=== PATIENT | male | born 1950 | race Caucasian/White ===

== ENCOUNTER → 2016-10-12 | Outpatient (CLI) | payer OTHER | END | disposition home or self-care (01) | LOC: CFH 09:17 | PROVIDERS: ATTEND Orthopaedic Surgery Adult Reconstructive Orthopaedic Surgery | DX: M75.51 Bursitis of right shoulder (principal); M75.101 Unspecified rotator cuff tear or rupture of right shoulder, not specified as traumatic ==

== ENCOUNTER → 2016-11-03 | Outpatient (CLI) | payer OTHER ==
[~2016-11-03] MED LIST: ACET-1600 PO; CALC1CAP8 PO; CHOL500014 PO; OMEG1CAP6 PO; curcumin PO
== END | disposition home or self-care (01) ==
LOC: STAR 15:29
PROVIDERS: ATTEND Orthopaedic Surgery Adult Reconstructive Orthopaedic Surgery
DX: Z01.818 Encounter for other preprocedural examination (principal); M75.121 Complete rotator cuff tear or rupture of right shoulder, not specified as traumatic; M75.21 Bicipital tendinitis, right shoulder
CPT/HCPCS: 93005

== ENCOUNTER 2016-11-11 05:35 | Day surgery (SDC) | payer MEDICARE, OTHER ==
[~2016-11-11] VITALS: Ht 193 cm; Wt 114.0 kg
[2016-11-11 06:19] VITALS: BP 115/77
[2016-11-11] MEDS ORDERED: LACTATED RINGERS 1,000 ML IV SCH (06:21)
[2016-11-11] MEDS ORDERED: BACITRACIN 50,000 UNIT ONE (06:22)
[2016-11-11] MEDS ORDERED: BUPIVACAINE/PF-EPI 0.25% 1:200K ONE (06:22)
[2016-11-11] MEDS ORDERED: FENTANYL PF 250 MCG/5ML ONE (06:24)
[2016-11-11] MEDS ORDERED: MIDAZOLAM 1 MG/ML, 2ML ONE (06:24)
[2016-11-11] MEDS ORDERED: BUPIVACAINE/PF 0.5% ONE (06:31)
[2016-11-11] MEDS ORDERED: ACETAMINOPHEN 650 MG/20.3 ML UDC ONE (08:25)
[2016-11-11] MEDS ORDERED: OXYcodone 5 MG/5 ML ORAL.SOL UDC ONE (08:26)
[2016-11-11] MEDS ORDERED: ACETAMINOPHEN 325 MG TABLET ONE (08:26)
[2016-11-11] MEDS ORDERED: HYDROmorphone 1 MG/ML, 1ML IV PRN (08:30)
[2016-11-11] MEDS ORDERED: OXYcodone 5 MG/5 ML ORAL.SOL UDC PO PRN (08:30)
[2016-11-11] MEDS ORDERED: hydrALAzine 20 MG/ML, 1ML IV PRN (08:30)
[2016-11-11] MEDS ORDERED: ACETAMINOPHEN 325 MG TABLET PO PRN (08:30)
[2016-11-11] MEDS ORDERED: FENTANYL PF 100 MCG/2ML IV PRN (08:30)
[2016-11-11] MEDS ORDERED: LABETALOL 5MG/ML, 20ML IV PRN (08:30)
[2016-11-11] MEDS ORDERED: ONDANSETRON 2MG/ML, 2ML IVPush PRN (08:30)
[2016-11-11] MEDS ORDERED: METOCLOPRAMIDE 5 MG/ML, 2ML IV PRN (08:30)
[2016-11-11] MEDS ORDERED: METOCLOPRAMIDE 5 MG/ML, 2ML ONE (08:37)
[2016-11-11] MEDS ORDERED: ONDANSETRON 2MG/ML, 2ML ONE ×2 (08:37→11:04)
[2016-11-11] MEDS ORDERED: PROMETHAZINE 25 MG/ML, 1ML ONE (08:45)
[2016-11-11] MEDS ORDERED: PROMETHAZINE 25 MG/ML, 1ML IV ONE (09:00)
[2016-11-11] MEDS ORDERED: CEFAZOLIN 1,000 MG ONE (11:04)
[2016-11-11] MEDS ORDERED: ROCURONIUM 10 MG/ML ONE (11:04)
[2016-11-11] MEDS ORDERED: DEXAMETHASONE 4 MG/ML, 1ML ONE (11:04)
[2016-11-11] MEDS ORDERED: GLYCOPYRROLATE 0.2MG/1ML ONE (11:04)
[2016-11-11] MEDS ORDERED: SUCCINYLCHOLINE 20 MG/ML, 10ML ONE (11:04)
[2016-11-11] MEDS ORDERED: NEOSTIGMINE 1 MG/ML, 10ML ONE (11:04)
== END 2016-11-11 11:10 | disposition home or self-care (01) ==
LOC: OUT 05:35
PROVIDERS: ATTEND Orthopaedic Surgery Adult Reconstructive Orthopaedic Surgery
DX: S46.011A Strain of muscle(s) and tendon(s) of the rotator cuff of right shoulder, initial encounter (principal); S43.431A Superior glenoid labrum lesion of right shoulder, initial encounter; M94.211 Chondromalacia, right shoulder; M19.90 Unspecified osteoarthritis, unspecified site; Z98.890 Other specified postprocedural states; X58.XXXA Exposure to other specified factors, initial encounter; Y93.9 Activity, unspecified; Y92.9 Unspecified place or not applicable; Y99.9 Unspecified external cause status; Z88.8 Allergy status to other drugs, medicaments and biological substances
CPT/HCPCS: 29822; 29827; C1713; J0330; J0690; J1100; J2250; J2405; J2550; J2710; J2765; J3010; J3490; J7120

== ENCOUNTER 2017-05-19 16:39 | Emergency (ER) | payer OTHER ==
[~2017-05-19] VITALS: Ht 193 cm; Wt 117.2 kg
[~2017-05-19 16:39] MED LIST changes: -CHOL500014 PO; +CHOL500045 PO
[2017-05-19] MEDS ORDERED: HYDROmorphone 2 MG/ML, 1ML ONE ×2 (16:59→18:30)
[2017-05-19] MEDS ORDERED: ONDANSETRON 2MG/ML, 2ML ONE (17:00)
[2017-05-19] MEDS ORDERED: ONDANSETRON 2MG/ML, 2ML IVPush ONE (17:00)
[2017-05-19] MEDS ORDERED: SODIUM CHLORIDE FLUSH 10ML SYR IVF ONE (17:00)
[2017-05-19] MEDS: HYDROmorphone 1 MG/ML, 1ML IVPush PRN ×2 (17:10→18:33)
[2017-05-19 17:12] LABS: BASOPHILS # (AUTO) 0.05 x10^3/uL (0-0.1); BASOPHILS % (AUTO) 1 % (0-1); EOSINOPHILS # (AUTO) 0.39 x10^3/uL (0-0.4); EOSINOPHILS % (AUTO) 4 % (1-7); LYMPHOCYTES # (AUTO) 2.46 x10^3/uL (1-3.4); LYMPHOCYTES % (AUTO) 26 % (22-44); MD NO; MEAN CORPUSCULAR HEMOGLOBIN 30.2 pg (27.5-34.5); MEAN CORPUSCULAR HGB CONC 33.9 g/dL (33.2-36.2); MEAN CORPUSCULAR VOLUME 89.2 fL (81-97); MEAN PLATELET VOLUME 9.2 fL (7.4-10.4); MONOCYTES # (AUTO) 0.47 x10^3/uL (0.2-0.8); MONOCYTES % (AUTO) 5 % (2-9); NEUTROPHILS % (AUTO) 65 % (42-75); PLATELET COUNT 178 x10^3/uL (130-400); RED BLOOD COUNT 5.57 x10^6/uL (4.38-5.82); RED CELL DISTRIBUTION WIDTH 13.2 % (9.4-14.8)
[2017-05-19] MEDS ORDERED: KETOROLAC 30 MG/1 ML ONE (17:12)
[2017-05-19 17:22] LABS: ALANINE AMINOTRANSFERASE 25 U/L (12-78); ALBUMIN 3.8 g/dL (3.4-5.0); ANION GAP 6 mmol/L (5-15); CALCIUM 9.3 mg/dL (8.5-10.1); CHLORIDE 110 mmol/L (98-107); CREATININE 1.35 mg/dL (0.7-1.3)
[2017-05-19 17:24] LABS: ALKALINE PHOSPHATASE 125 U/L (45-117); BILIRUBIN,TOTAL 0.6 mg/dL (0.2-1.0)
[2017-05-19] MEDS ORDERED: KETOROLAC 30 MG/1 ML IVPush ONE (17:30)
[2017-05-19 18:42] LABS: MICROSCOPIC AUTO
[2017-05-19 18:48] LABS: CULTURE INDICATED? NO
[2017-05-19 19:16] VITALS: BP 132/76
== END 2017-05-19 20:28 | disposition home or self-care (01) ==
LOC: ED 19:53
DX: N13.2 Hydronephrosis with renal and ureteral calculous obstruction (principal); R68.89 Other general symptoms and signs; Z87.891 Personal history of nicotine dependence
CPT/HCPCS: 36415; 74176; 76770; 80053; 81001; 85025; 96374; 96375; 96376; 99285; J1170; J1885; J2405

== ENCOUNTER 2017-06-03 07:40 | Emergency (ER) | payer OTHER ==
[~2017-06-03] VITALS: Ht 193 cm; Wt 119.5 kg
[2017-06-03] MEDS ORDERED: HYDROmorphone 2 MG/ML, 1ML ONE (08:20)
[2017-06-03] MEDS ORDERED: ONDANSETRON 2MG/ML, 2ML ONE (08:20)
[2017-06-03] MEDS ORDERED: ONDANSETRON 2MG/ML, 2ML IVPush ONE (08:30)
[2017-06-03] MEDS ORDERED: HYDROmorphone 1 MG/ML, 1ML IVPush PRN (08:30)
[2017-06-03] MEDS ORDERED: SODIUM CHLORIDE FLUSH 10ML SYR IVF ONE (08:30)
[2017-06-03 08:46] LABS: BASOPHILS # (AUTO) 0.02 x10^3/uL (0-0.1); BASOPHILS % (AUTO) 0 % (0-1); EOSINOPHILS # (AUTO) 0.27 x10^3/uL (0-0.4); EOSINOPHILS % (AUTO) 3 % (1-7); LYMPHOCYTES % (AUTO) 19 % (22-44); MD NO; MEAN CORPUSCULAR HEMOGLOBIN 29.5 pg (27.5-34.5); MEAN CORPUSCULAR HGB CONC 33.5 g/dL (33.2-36.2); MEAN PLATELET VOLUME 9.3 fL (7.4-10.4); MONOCYTES # (AUTO) 0.46 x10^3/uL (0.2-0.8); MONOCYTES % (AUTO) 6 % (2-9); NEUTROPHILS # (AUTO) 5.76 x10^3/uL (1.8-6.8); NEUTROPHILS % (AUTO) 72 % (42-75); PLATELET COUNT 187 x10^3/uL (130-400); RED BLOOD COUNT 5.29 x10^6/uL (4.38-5.82)
[2017-06-03 08:56] LABS: ALBUMIN 3.4 g/dL (3.4-5.0); ANION GAP 8 mmol/L (5-15); CHLORIDE 113 mmol/L (98-107); CREATININE 1.39 mg/dL (0.7-1.3)
[2017-06-03 10:41] LABS: MICROSCOPIC INDICATED
[2017-06-03 11:06] LABS: CULTURE INDICATED? NO
[2017-06-03 11:24] VITALS: BP 123/68
== END 2017-06-03 11:30 | disposition home or self-care (01) ==
LOC: ED 10:12
DX: N13.2 Hydronephrosis with renal and ureteral calculous obstruction (principal); Z87.442 Personal history of urinary calculi
CPT/HCPCS: 36415; 74018; 76770; 80048; 81001; 82040; 85025; 96374; 96375; 99285; J1170; J2405

== ENCOUNTER 2017-06-07 07:47 | Day surgery (SDC) | payer OTHER ==
[~2017-06-07] VITALS: Ht 193 cm; Wt 117.0 kg
[2017-06-07] MEDS ORDERED: LIDOCAINE 1%, 2ML ONE (08:47)
[2017-06-07] MEDS ORDERED: ONDANSETRON 2MG/ML, 2ML ONE ×2 (09:05→12:00)
[2017-06-07] MEDS ORDERED: LACTATED RINGERS 1,000 ML IV SCH (09:09)
[2017-06-07 09:13] VITALS: BP 149/84
[2017-06-07] MEDS ORDERED: ACET-1600 PO (09:25)
[2017-06-07] MEDS ORDERED: HYDR2TAB29 PO (09:25)
[2017-06-07] MEDS ORDERED: TAMS-11 PO (09:25)
[2017-06-07] MEDS ORDERED: NAPR220C2 PO (09:25)
[2017-06-07] MEDS ORDERED: ONDANSETRON 2MG/ML, 2ML IVPush ONE (09:30)
[2017-06-07] MEDS ORDERED: LIDOCAINE 1%, 2ML SQ PRN (09:30)
[2017-06-07] MEDS ORDERED: PLEASE ENTER HEIGHT AND WEIGHT MC SCH (09:30)
[2017-06-07] MEDS ORDERED: FENTANYL PF 100 MCG/2ML ONE ×2 (09:41→11:24)
[2017-06-07] MEDS ORDERED: KETOROLAC 30 MG/1 ML ONE (10:02)
[2017-06-07] MEDS ORDERED: CEFAZOLIN 1,000 MG ONE (10:02)
[2017-06-07] MEDS ORDERED: PROPOFOL 10 MG/ML, 20ML ONE (10:02)
[2017-06-07] MEDS ORDERED: EPHEDRINE 50 MG/ML, 1ML ONE (10:02)
[2017-06-07] MEDS ORDERED: DEXAMETHASONE 4 MG/ML, 1ML ONE (10:02)
[2017-06-07] MEDS ORDERED: OXYcodone 5 MG/5 ML ORAL.SOL UDC PO PRN (10:30)
[2017-06-07] MEDS ORDERED: LABETALOL 5MG/ML, 20ML IV PRN (10:30)
[2017-06-07] MEDS ORDERED: ACETAMINOPHEN 325 MG TABLET PO PRN (10:30)
[2017-06-07] MEDS ORDERED: HYDROmorphone 1 MG/ML, 1ML IV PRN (10:30)
[2017-06-07] MEDS ORDERED: hydrALAzine 20 MG/ML, 1ML IV PRN (10:30)
[2017-06-07] MEDS ORDERED: ONDANSETRON 2MG/ML, 2ML IVPush PRN (10:30)
[2017-06-07] MEDS ORDERED: ACETAMINOPHEN 650 MG/20.3 ML UDC ONE (11:23)
[2017-06-07] MEDS ORDERED: OXYcodone 5 MG/5 ML ORAL.SOL UDC ONE (11:24)
[2017-06-07] MEDS: FENTANYL PF 100 MCG/2ML IV PRN ×2 (11:25→11:40)
== END 2017-06-07 13:15 | disposition home or self-care (01) ==
LOC: OUT 07:47
PROVIDERS: ATTEND Student in an Organized Health Care Education/Training Program
DX: N20.1 Calculus of ureter (principal); N23 Unspecified renal colic; Z87.891 Personal history of nicotine dependence
CPT/HCPCS: 52356; 74018; 76000; 82360; 88300; 93005; C1758; C1769; C2617; J0690; J1100; J1885; J2405; J2704; J3010; J3490; J7120